=== PATIENT | female | born 1995 | race Caucasian/White ===

== ENCOUNTER 2024-12-04 07:47 | Emergency (ER) | payer MEDICAID, OTHER ==
[~2024-12-04] VITALS: Ht 177.8 cm; Wt 135.4 kg
[~2024-12-04 07:47] MED LIST: ACE3T PO; IBUP-1456 PO; NITR-87 PO; TAMS-35 PO
[2024-12-04 08:02] VITALS: BP 138/84; PULSE 100; RESP 17; TEMP 97.2; O2SAT 97
[2024-12-04] MEDS ORDERED: CEFD300C2 PO (08:26)
--- NOTE | 2024-12-04 08:26 | ED.PDOC ---
History of Present Illness(SKN Chief Complaint: Wound Check bilateral incision along the mid legs for removal of fatty tissue, the laceration is healing but the margins red and mildly inflamed Time Seen by MD: 07:55 Primary Care Provider: LINUS History of Present Illness: Nurses Notes, Medications, Allergies Allergies: Coded Allergies: NO KNOWN ALLERGIES (Unverified , 09/25/23) Home Meds Active Scripts Cefdinir (Cefdinir) 300 Mg Cap, 1 CAP PO BID for 7 Days, #14 CAP Prov:MELANY MÁRQUEZ MD 12/04/24 Acetaminophen W/ Codeine (Tylenol W/Cod #3) 1 Tab Tb, 1 TAB PO Q6HP PRN, #20 TAB Prov:DUGLAS FOWLER PAC 09/25/23 Ibuprofen (Ibuprofen) 800 Mg Tab, 1 TAB PO Q8HP PRN, #30 TAB 0 Refills Prov:DUGLAS FOWLER PAC 09/25/23 Tamsulosin Hcl (Flomax) 0.4 Mg Cap, 1 CAP PO DAILY for 10 Days, #10 CAP 0 Refills Prov:DUGLAS FOWLER PAC 09/25/23 Nitrofurantoin Monohydrate Mac (Macrobid) 100 Mg Cap, 100 MG PO BID for 5 Days, #10 CAP Prov:DUGLAS FOWLER PAC 09/25/23 Information Source: Patient Mode of Arrival: Ambulatory Severity: Mild, Moderate Timing: Days Duration: Intermittent, Days Location: Leg Mechanism: Preceding Wound Retained Foreign Body: No Wound Type: Other (Incisions) Tetanus: UTD Associated Signs and Symptoms: Redness, Swelling, Red Streaking Past Medical History PAST MEDICAL HISTORY: Depression Past Medical History (Other): Lymphedema Surgical History (Other): Both middle legs incisions for fat removal PROFESSIONAL NURSE History: No Pertinent PROFESSIONAL NURSE History Family History Family History: Reviewed,noncontributory to illness, No family hx of Cancer, No family hx of DM, No family hx of Heart daniel, No family hx of HTN, No family hx ofKidney daniel, No family hx of Liver daniel, No family hx of Lung daniel, No family hx of Stroke Social History Smoker: Non-Smoker Alcohol: Denies ETOH Use Drugs: Denies Drug Use Lives In: Home Constitutional: denies: chills, diaphoresis, fatigue, fever, malaise, sweats, weakness, others EENTM: denies: blurred vision, double vision, ear bleeding, ear discharge, ear drainage, ear pain, ear ringing, eye pain, eye redness, hearing loss, mouth pain, mouth swelling, nasal discharge, nose bleeding, nose congestion, nose pain, photophobia, tearing, throat pain, throat swelling, voice changes, others Respiratory: denies: cough, hemoptysis, orthopnea, SOB at rest, shortness of breath, SOB with excertion, stridor, wheezing, others Cardiovascular: denies: chest pain, dizzy spells, diaphoresis, Dyspnea on exertion, edema, irregular heart beat, left arm pain, lightheadedness, palpitations, PND, syncope, others Gastrointestinal: denies: abdomen distended, abdominal pain, blood streaked bowels, constipated, diarrhea, dysphagia, difficulty swallowing, hematemesis, melena, nausea, poor appetite, poor fluid intake, rectal bleeding, rectal pain, vomiting, others Genitourinary: denies: abnormal vagina bleeding, burning, dyspareunia, dysuria, flank pain, frequency, hematuria, incontinence, pain, , vagina discharge, urgency, others Neurological: denies: dizziness, fainting, headache, left sided numbness, left sided weakness, numbness, paresthesia, pre-existing deficit, right sided numbness, right sided weakness, seizure, speech problems, tingling, tremors, weakness, others Musculoskeletal: denies: back pain, gout, joint pain, joint swelling, muscle pain, muscle stiffness, neck pain, others Integumetry: reports: laceration, wounds Allergic/Immunocompromised: denies: Difficulty Healing, Frequent Infections, Hives, Itching, others Hematologic/Lymphatic: denies: anemia, blood clots, easy bleeding, easy bruising, swollen glands, others Endocrine: denies: excessive hunger, excessive sweating, excessive thirst, excessive urination, flushing, intolerance to cold, intolerance to heat, unexplained weight gain, unexplained weight loss, others Psychiatric: denies: anxiety, bipolar disorder, depression, hopeless, panic disorder, schizophrenia, sleepless, suicidal, others All Other Systems: Reviewed and Negative Physical Exam General Appearance: Obese HEENT: Normal ENT Inspection, Pharynx Normal, TMs Normal Neck: Full Range of Motion, Non-Tender, Normal, Normal Inspection Respiratory: Chest Non-Tender, Lungs Clear, No Accessory Muscle Use, No Respiratory Distress, Normal Breath Sounds Cardiovascular: No Edema, No JVD, No Murmur, No Gallop, Normal Peripheral Pulses, Regular Rate/Rhythm Breast Exam: Deferred Gastrointestinal: No Organomegaly, Non Tender, No Pulsatile Mass, Normal Bowel Sounds, Soft, Other (Obesity morbid) Genitalia: Deferred Pelvic: Deferred Rectal: Deferred Extremities: Inflammation, Normal range of motion, No pedal edema, Swelling, Tender Neurologic: Alert, meringuer II-XII nml as Tested, No Motor Deficits, Normal Affect, Normal Mood, No Sensory Deficits Cerebellar Function: Normal Reflexes: Normal Skin: Dry, Lacerations, Normal Color, Warm, Wounds Peripheral Pulses: 1+ carotid (R), 1+ carotid (L) Lymphatic: No Adenopathy Was a procedure done? Was a procedure done?: No Differential Diagnosis (INTG) Differential Diagnosis: Cellulitis, Laceration Differential Diagnosis: N/A Differential Diagnosis: Cellulitis, Lacerations Abscess: Cellulitis Differential Diagnosis: Cellulitis, Laceration X-Ray, Labs, Meds, VS Vital Signs Date Time Temp Pulse Resp B/P (MAP) Pulse Ox O2 Delivery O2 Flow Rate FiO2 12/04/24 08:02 97.2 100 17 138/84 (102) 97 97.2 12/04/24 08:02 100 17 12/04/24 07:55 97.2 100 18 138/84 (102) 97 97.2 Current Medications Medications (Trade) Dose Ordered Sig/Efra Route Start Time Stop Time Status Last Admin Neomycin/ Polymyxin/ Bacitracin (Triple Antibiotic) 2 applic ONCE ONCE TOP 12/04/24 08:45 12/04/24 08:46 DC 12/04/24 08:49 X-Ray, Labs, Meds, VS Comment Patient with bilateral incision the mid leg posterior aspect for removal local fat deposit Patient with redness noted Wounds will be cleaned with peroxide Neosporin we will be applied as well as a dressing Patient will be discharged with cefdinir Time of 1ST Reevaluation: 09:10 Reevaluation 1ST: Improved Consultation: PCP Patient Education/Counseling: Diagnosis, Treatment, Prognosis, Need For Follow Up Family Education/Counseling: Diagnosis, Treatment, No Family Present Departure 1 Departure Time of Disposition: 08:24 Impression: Primary Impression: Deep incisional surgical site infection Disposition: HOME / SELF CARE / HOMELESS Condition: Good Additional Instructions: Cleaned With peroxide and apply Neosporin ointment e-Prescriptions Cefdinir (Cefdinir) 300 Mg Cap 1 CAP PO BID for 7 Days, #14 CAP Prov: MELANY MÁRQUEZ MD 12/04/24 Discharged With: Self Critical Care Note Critical Care Time?: No Stability Stability form required: No Heart Score Heart Score: Heart Score Response (Comments) Value History N/A 0 EKG N/A 0 Age <45 0 Risk Factors 1 or 2 risk factors 1 Troponin N/A 0 Total 1 MELANY MÁRQUEZ MD Dec 04, 2024 08:26
[2024-12-04] MEDS: NEOMYCIN-BACITRACIN-POLYM UNITDOSE PKG TOP OINT TOP ONE (08:49)
== END 2024-12-04 09:04 | disposition home or self-care (01) ==
LOC: ER 07:47
DX: T81.42XA Infection following a procedure, deep incisional surgical site, initial encounter (principal); Z79.899 Other long term (current) drug therapy; Z98.890 Other specified postprocedural states